=== PATIENT | male | born 1965 | race Hispanic/Latino ===

== ENCOUNTER 2020-08-26 13:20 | Inpatient (IN) | payer OTHER, SELFPAY ==
[~2020-08-26] VITALS: Ht 175.3 cm; Wt 124.6 kg
[2020-08-26] MEDS ORDERED: CEFAZOLIN SODIUM 1 GM VIAL ONE (14:05)
[2020-08-26] MEDS ORDERED: 0.9%NACL 100ML 100 ML IV ONE (14:06)
[2020-08-26] MEDS ORDERED: HYDROCODONE/ACETAMINOPHEN 10/325 MG TAB ONE (14:06)
[2020-08-26] MEDS ORDERED: NIFEDIPINE 10 MG CAP ONE (14:25)
[2020-08-26] MEDS ORDERED: LACTULOSE 20 GM/30 ML UDCUP PO PRN (14:30)
[2020-08-26] MEDS ORDERED: MORPHINE 4 MG SYG IV PRN (14:30)
[2020-08-26] MEDS ORDERED: MORPHINE 2 MG SYG IV PRN (14:30)
[2020-08-26] MEDS ORDERED: ACETAMINOPHEN 325 MG TAB PO PRN ×2 (14:30)
[2020-08-26] MEDS: CEFAZOLIN SODIUM 1 GM VIAL IVP SCH ×2 (14:30→22:02)
[2020-08-26] MEDS ORDERED: ONDANSETRON 4MG INJ IV PRN (14:30)
[2020-08-26] MEDS: METOPROLOL TARTRATE 25 MG TAB PO SCH ×2 (14:30→21:59)
[2020-08-26] MEDS: LISINOPRIL 10 MG TABLET PO SCH (14:30)
[2020-08-26] MEDS ORDERED: LABETALOL 20MG VIAL IV PRN (14:30)
[2020-08-26 14:33] LABS: BASOPHILS % (AUTO) 0.4 % (0.0-5.0); EOSINOPHILS % (AUTO) 1.8 % (0.0-8.0); HEMATOCRIT 47.3 % (42-54); LYMPHOCYTES % (AUTO) 18.6 % (21.0-51.0); MEAN CORPUSCULAR HEMOGLOBIN 30.1 pg (27.0-33.0); MEAN CORPUSCULAR HGB CONC 34.9 g/dL (32.0-36.0); MEAN CORPUSCULAR VOLUME 86.2 fL (79-99); MONOCYTES % (AUTO) 7.8 % (3.0-13.0); NEUTROPHILS % (AUTO) 70.9 % (40.0-77.0); PLATELET COUNT (AUTO) 259 K/uL (130-400); RED BLOOD CELL COUNT(AUTO) 5.49 MIL/uL (4.50-6.20); RED CELL DISTRIBUTION WIDTH 12.3 % (11.0-15.5); WHITE BLOOD COUNT (AUTO) 10.1 K/uL (4.8-10.8)
[2020-08-26 14:44] LABS: POTASSIUM 4.8 mmol/L (3.5-5.1)
[2020-08-26 14:48] LABS: ALBUMIN 3.4 g/dL (3.5-5.0); BILIRUBIN,TOTAL 0.5 mg/dL (0.2-1.0); TOTAL PROTEIN, SERUM 7.4 g/dL (6.0-8.3)
[2020-08-26 15:39] LABS: INR 0.94 (0.85-1.15); PROTHROMBIN TIME 10.3 SEC (9.6-11.6)
[2020-08-26 15:45] LABS: HEMOGLOBIN A1C 10.8 % (4.0-6.0)
[2020-08-26] MEDS ORDERED: METOPROLOL TARTRATE 25 MG TAB ONE (15:52)
[2020-08-26] MEDS ORDERED: LISINOPRIL 5 MG TABLET ONE (15:52)
[2020-08-26] MEDS: INSULIN HUMULIN R 100 UNIT/ML 3ML SQ SCH ×2 (16:30→22:02)
[2020-08-26 20:55] LABS: APPEARANCE,URINE Clear (CLEAR); BILIRUBIN,URINE Negative (NEGATIVE); COLOR,URINE Yellow (YELLOW); GLUCOSE, URINE (UA) >=1000 mg/dL (NEGATIVE); KETONES,URINE Negative (NEGATIVE); LEUKOCYTE ESTERASE ,URINE Negative (NEGATIVE); NITRATE,URINE Negative (NEGATIVE); OCCULT BLOOD,URINE Nonhemolyzed Trace (NEGATIVE); PROTEIN,URINE >=1000 mg/dL (NEGATIVE)
[2020-08-26] MEDS ORDERED: LABETALOL 20MG SYG IV ONE (20:57)
[2020-08-26 21:09] LABS: BACTERIA,URINE Few /HPF (None Seen); HYALINE CASTS, URINE 0-1 /LPF (0-1 /LPF); MUCUS,URINE Moderate LPF (None Seen); SQUAMOUS EPITHELIAL CELL,UR Few /HPF (0-2)
[2020-08-26 21:20] VITALS: BP 154/78
[2020-08-26] MEDS: FAMOTIDINE 20MG TAB PO SCH (21:59)
[2020-08-26] MEDS ORDERED: GLYB1TAB32 PO (22:29)
[2020-08-26] MEDS ORDERED: LISI20TA24 PO (22:29)
[2020-08-27 00:59] VITALS: BP 107/68
[2020-08-27 06:05] VITALS: BP 137/83
[2020-08-27] MEDS: CEFAZOLIN SODIUM 1 GM VIAL IVP SCH ×3 (06:13→22:37)
[2020-08-27] MEDS: INSULIN HUMULIN R 100 UNIT/ML 3ML SQ SCH ×4 (06:23→20:56)
[2020-08-27 07:30] VITALS: BP 132/62
[2020-08-27] MEDS: FAMOTIDINE 20MG TAB PO SCH ×2 (08:24→20:49)
[2020-08-27] MEDS: LISINOPRIL 10 MG TABLET PO SCH (08:25)
[2020-08-27] MEDS: METOPROLOL TARTRATE 25 MG TAB PO SCH ×2 (08:25→20:49)
[2020-08-27 11:00] VITALS: BP 132/71
[2020-08-27 16:00] VITALS: BP 119/65
[2020-08-27 20:00] VITALS: BP 151/77
[2020-08-27] MEDS ORDERED: INSULIN GLARGINE 100 UNITS/ML 10 ML VIAL SQ SCH (21:00)
[2020-08-28] VITALS (17 sets, daily range): BP systolic 119–166; BP diastolic 62–92
[2020-08-28 05:21] LABS: BASOPHILS % (AUTO) 0.3 % (0.0-5.0); EOSINOPHILS % (AUTO) 3.5 % (0.0-8.0); HEMATOCRIT 40.7 % (42-54); LYMPHOCYTES % (AUTO) 30.2 % (21.0-51.0); MEAN CORPUSCULAR HEMOGLOBIN 30.5 pg (27.0-33.0); MEAN CORPUSCULAR HGB CONC 34.4 g/dL (32.0-36.0); MEAN CORPUSCULAR VOLUME 88.7 fL (79-99); MONOCYTES % (AUTO) 11.8 % (3.0-13.0); NEUTROPHILS % (AUTO) 53.7 % (40.0-77.0); PLATELET COUNT (AUTO) 218 K/uL (130-400); RED BLOOD CELL COUNT(AUTO) 4.59 MIL/uL (4.50-6.20); RED CELL DISTRIBUTION WIDTH 12.5 % (11.0-15.5)
[2020-08-28 05:44] LABS: CREATININE 1.3 mg/dL (0.5-1.5); POTASSIUM 4.2 mmol/L (3.5-5.1)
[2020-08-28] MEDS: INSULIN HUMULIN R 100 UNIT/ML 3ML SQ SCH ×2 (06:03→14:00)
[2020-08-28] MEDS: CEFAZOLIN SODIUM 1 GM VIAL IVP SCH (06:39)
[2020-08-28] MEDS ORDERED: 0.9%NACL 1000ML 1,000 ML IV ONE (07:42)
[2020-08-28] MEDS ORDERED: TETANUS/DIPHTHERIA TOXOID [ADULT] 0.5 ML VIAL IM SCH (09:45)
[2020-08-28] MEDS ORDERED: SUCCINYLCHOLINE CHLORIDE 20 MG/ML 10 ML VIAL ONE (10:56)
[2020-08-28] MEDS ORDERED: LIDOCAINE PF 100MG/5ML (2%) SYRINGE 5ML ONE (10:56)
[2020-08-28] MEDS ORDERED: GLYCOPYRROLATE 1 MG/5 ML SYRINGE ONE (10:56)
[2020-08-28] MEDS ORDERED: ONDANSETRON 4MG INJ ONE (10:56)
[2020-08-28] MEDS ORDERED: PROPOFOL 10 MG/ML 20ML VIAL IV ONE (10:56)
[2020-08-28] MEDS ORDERED: DEXAMETHASONE SOD PHOSPHATE 10MG/ML 1ML VIAL ONE (10:56)
[2020-08-28] MEDS ORDERED: ROCURONIUM 10MG/1ML SYR 10 MG/ML ML ONE (10:57)
[2020-08-28] MEDS ORDERED: NEOSTIGMINE 5MG/5ML SYR IV ONE (10:57)
[2020-08-28] MEDS ORDERED: FENTANYL CITRATE PF 50 MCG/1 ML 2ML VIAL ONE ×2 (10:57→11:46)
[2020-08-28] MEDS ORDERED: MIDAZOLAM HCL 1 MG/ML 2ML VIAL ONE (10:57)
[2020-08-28] MEDS ORDERED: LIDOCAINE HCL 1% 20 ML VIAL ONE (11:08)
[2020-08-28] MEDS ORDERED: ROPIVACAINE 0.5% 5MG/ML 30ML IJ ONE (11:09)
[2020-08-28] MEDS ORDERED: BUPIVACAINE/PF 0.5% 30ML VIAL INJ ONE (12:00)
[2020-08-28] MEDS: FAMOTIDINE 20MG TAB PO SCH (13:44)
[2020-08-28] MEDS: LISINOPRIL 10 MG TABLET PO SCH (13:44)
[2020-08-28] MEDS: METOPROLOL TARTRATE 25 MG TAB PO SCH (13:44)
== END 2020-08-28 17:45 | disposition home or self-care (01) | DRG 605 ==
LOC: EDH 13:20 → EDHIP 13:21 → 3CH 21:17
PROVIDERS: ADMIT Internal Medicine; ATTEND Internal Medicine
PROC: 0HBFXZZ Excision of Right Hand Skin, External Approach (ICD-10-PCS; 2020-08-26)
PROC: 3E0234Z Introduction of Serum, Toxoid and Vaccine into Muscle, Percutaneous Approach (ICD-10-PCS; principal; 2020-08-28 08:00)
DX: S61.212A Laceration without foreign body of right middle finger without damage to nail, initial encounter (principal); Z68.41 Body mass index [BMI] 40.0-44.9, adult; E11.9 Type 2 diabetes mellitus without complications; E78.5 Hyperlipidemia, unspecified; I10 Essential (primary) hypertension; E66.9 Obesity, unspecified; W01.0XXA Fall on same level from slipping, tripping and stumbling without subsequent striking against object, initial encounter; Y93.01 Activity, walking, marching and hiking; Y92.89 Other specified places as the place of occurrence of the external cause; Y99.8 Other external cause status; Z23 Encounter for immunization; Z79.899 Other long term (current) drug therapy
CPT/HCPCS: 36415; 71045; 73140; 80048; 80053; 81001; 82948; 83036; 84484; 85025; 85610; 87426; 90714; 93005; G0378; J0330; J0690; J1100; J1815; J2001; J2250; J2405; J2704; J2710; J2795; J3010; J3490; J7030; U0003